=== PATIENT | male | born 1965 | race Two or more races ===

== ENCOUNTER 2023-03-07 12:25 | Inpatient (IN) | payer OTHER ==
[~2023-03-07] VITALS: Ht 170.2 cm; Wt 85.9 kg
[2023-03-07 13:47] LABS: BASOPHILS % (AUTO) 0.3 % (0.0-2.0); EOSINOPHILS % (AUTO) 0.6 % (1.0-6.0); HEMATOCRIT 35.4 % (41-53); HEMOGLOBIN 12.1 g/dL (13.5-17.5); LYMPHOCYTES # (AUTO) 0.9 K/uL (1.0-4.8); LYMPHOCYTES % (AUTO) 7.4 % (22.0-44.0); MEAN CORPUSCULAR HEMOGLOBIN 32.7 pg (26.0-34.0); MEAN CORPUSCULAR HGB CONC 34.3 G/dL (31.0-37.0); MEAN CORPUSCULAR VOLUME 95 fL (80-100); MONOCYTES # (AUTO) 1.1 K/uL (0.1-1.0); MONOCYTES % (AUTO) 9.7 % (2.0-9.0); NEUTROPHILS # (AUTO) 9.6 K/uL (1.8-7.7); PLATELET COUNT (AUTO) 354 K/uL (150-450); RED BLOOD CELL COUNT(AUTO) 3.71 MIL/uL (4.50-5.90); RED CELL DISTRIBUTION WIDTH 13.9 % (11.5-14.5); WHITE BLOOD COUNT (AUTO) 11.7 K/uL (4.5-11.0)
[2023-03-07 14:03] LABS: CALCIUM, TOTAL 9.3 mg/dL (8.8-10.5); CREATININE 1.29 mg/dL (0.60-1.30); POTASSIUM 4.2 mmol/L (3.5-5.1)
[2023-03-07 14:08] LABS: ALBUMIN 3.4 g/dL (3.4-5.0); BILIRUBIN,TOTAL 0.3 mg/dL (0.1-1.0); TOTAL PROTEIN, SERUM 8.3 g/dL (6.4-8.2)
[2023-03-07] MEDS ORDERED: SODIUM CHLORIDE 0.9% 1,000 ML IV ONE ×2 (14:30→16:45)
[2023-03-07 14:58] LABS: TROPONIN I-HIGH SENSITIVITY Less Than 4 ng/L (<76)
[2023-03-07 15:51] LABS: GLUCOMETER DEV NAME(LOC) ERT.5; GLUCOSE,POINT OF CARE 175 MG/DL (70-110)
[2023-03-07] MEDS ORDERED: VANCOMYCIN 1GM/WATER(PEG/NADA) 200 ML IV ONE (16:00)
[2023-03-07 16:31] LABS: ERYTHROCYTE SEDIMENTATION RATE 69 MM/HR (0-20)
[2023-03-07] MEDS ORDERED: DEXTROSE 50%-WATER 25 GM/50 ML SYRINGE IVP PRN (16:45)
[2023-03-07] MEDS ORDERED: MAGNESIUM HYDROXIDE SUSPENSION 30 ML UDCUP PO PRN (16:45)
[2023-03-07] MEDS ORDERED: ACETAMINOPHEN 325 MG TABLET PO PRN (16:45)
[2023-03-07] MEDS ORDERED: OxyCODONE HCL/ACETAMINOPHEN 5-325 MG TABLET PO PRN (16:45)
[2023-03-07 18:33] VITALS: BP 97/55; PULSE 60; RESP 19; TEMP 98.4
[2023-03-07 20:14] VITALS: BP 91/53; PULSE 64; RESP 18; TEMP 98.2
[2023-03-07] MEDS: INSULIN LISPRO 100 UNITS/ML SQ PRN (20:43)
[2023-03-07] MEDS: CefTRIAXone 1 GM/DEXTROSE 50 ML IV SCH (21:30)
[2023-03-07 22:01] LABS: GLUCOMETER DEV NAME(LOC) 5N.2C; GLUCOSE,POINT OF CARE 160 MG/DL (70-110)
[2023-03-08 00:34] VITALS: BP 98/61; PULSE 60; RESP 18; TEMP 98.7
[2023-03-08] MEDS: HEPARIN SODIUM,PORCINE 5,000 UNITS/ML VIAL SQ SCH ×3 (01:02→16:46)
[2023-03-08 04:28] VITALS: BP 107/66; PULSE 62; RESP 18; TEMP 98.6
[2023-03-08] MEDS: INSULIN LISPRO 100 UNITS/ML SQ PRN ×4 (06:14→20:27)
[2023-03-08 07:46] LABS: GLUCOMETER DEV NAME(LOC) 5N.1C; GLUCOSE,POINT OF CARE 148 MG/DL (70-110)
[2023-03-08] MEDS ORDERED: VANCOMYCIN HCL 750 MG in DEXTROSE 5%-WATER 250 ML IV SCH (08:00)
[2023-03-08 08:27] VITALS: BP 115/68; PULSE 59; RESP 19; TEMP 98.2
[2023-03-08] MEDS: ASPIRIN 81 MG CHEWABLE TABLET PO SCH (08:40)
[2023-03-08] MEDS: FAMOTIDINE 20 MG TABLET PO SCH (08:41)
[2023-03-08 08:50] LABS: ANION GAP 8 mmol/L (8-16); CALCIUM, TOTAL 8.9 mg/dL (8.8-10.5); CARBON DIOXIDE 24 mmol/L (22-29); CHLORIDE 102 mmol/L (98-107); CREATININE 0.82 mg/dL (0.60-1.30); GLOMERULAR FILTR. RATE CALC > 60 mL/min (>60); GLUCOSE,RANDOM 123 mg/dL (70-110); POTASSIUM 3.9 mmol/L (3.5-5.1); SODIUM SERUM 134 mmol/L (136-145); UREA NITROGEN, BLOOD 16 mg/dL (7-18)
[2023-03-08 12:21] LABS: GLUCOMETER DEV NAME(LOC) 5N.2C; GLUCOSE,POINT OF CARE 191 MG/DL (70-110)
[2023-03-08 15:11] VITALS: BP 107/54; PULSE 59; RESP 19; TEMP 97.4
[2023-03-08 18:11] LABS: GLUCOMETER DEV NAME(LOC) 5N.1C; GLUCOSE,POINT OF CARE 151 MG/DL (70-110)
[2023-03-08 20:00] VITALS: BP 98/70; PULSE 62; RESP 19; TEMP 98.5
[2023-03-08] MEDS: VANCOMYCIN HCL 500 MG in DEXTROSE 5%-WATER 100 ML IV SCH (20:16)
[2023-03-08] MEDS: CefTRIAXone 1 GM/DEXTROSE 50 ML IV SCH (21:35)
[2023-03-09] VITALS (7 sets, daily range): BP systolic 100–137; BP diastolic 60–83; PULSE 5–62; RESP 18–20; TEMP 98–98.8
[2023-03-09 01:11] LABS: GLUCOMETER DEV NAME(LOC) 5N.1C; GLUCOSE,POINT OF CARE 177 MG/DL (70-110)
[2023-03-09] MEDS ORDERED: ETHYL ALCOHOL 62% ANTISEPTIC NASAL SANITIZER 0.6 ML AMPUL NASAL ONE (06:00)
[2023-03-09] MEDS ORDERED: RINGERS SOLUTION,LACTATED 1,000 ML IV ONE (06:01)
[2023-03-09] MEDS ORDERED: BUPIVACAINE HCL/PF 0.5% 30 ML VIAL ONE (06:16)
[2023-03-09] MEDS ORDERED: VANCOMYCIN HCL 1 GM/VIAL ONE (06:16)
[2023-03-09] MEDS ORDERED: SODIUM CL IRRIG SOLN BAG 3,000 ML IRRIG ONE (06:16)
[2023-03-09] MEDS ORDERED: LIDOCAINE/PF 1% 30 ML VIAL ONE (06:16)
[2023-03-09] MEDS: VANCOMYCIN HCL 500 MG in DEXTROSE 5%-WATER 100 ML IV SCH ×2 (06:39→19:48)
[2023-03-09 06:47] LABS: BASOPHILS % (AUTO) 0.5 % (0.0-2.0); EOSINOPHILS % (AUTO) 4.6 % (1.0-6.0); HEMATOCRIT 35.5 % (41-53); HEMOGLOBIN 12.1 g/dL (13.5-17.5); LYMPHOCYTES # (AUTO) 1.3 K/uL (1.0-4.8); LYMPHOCYTES % (AUTO) 13.9 % (22.0-44.0); MEAN CORPUSCULAR HEMOGLOBIN 32.4 pg (26.0-34.0); MEAN CORPUSCULAR HGB CONC 34.1 G/dL (31.0-37.0); MEAN CORPUSCULAR VOLUME 95 fL (80-100); MONOCYTES # (AUTO) 0.9 K/uL (0.1-1.0); MONOCYTES % (AUTO) 9.6 % (2.0-9.0); NEUTROPHILS # (AUTO) 6.7 K/uL (1.8-7.7); NEUTROPHILS % (AUTO) 71.4 % (40.0-70.0); PLATELET COUNT (AUTO) 383 K/uL (150-450); RED BLOOD CELL COUNT(AUTO) 3.74 MIL/uL (4.50-5.90); RED CELL DISTRIBUTION WIDTH 14.2 % (11.5-14.5); WHITE BLOOD COUNT (AUTO) 9.5 K/uL (4.5-11.0)
[2023-03-09 07:03] LABS: ANION GAP 9 mmol/L (8-16); CALCIUM, TOTAL 8.6 mg/dL (8.8-10.5); CARBON DIOXIDE 27 mmol/L (22-29); CHLORIDE 98 mmol/L (98-107); CREATININE 0.78 mg/dL (0.60-1.30); GLOMERULAR FILTR. RATE CALC > 60 mL/min (>60); GLUCOSE,RANDOM 157 mg/dL (70-110); POTASSIUM 4.4 mmol/L (3.5-5.1); SODIUM SERUM 134 mmol/L (136-145); UREA NITROGEN, BLOOD 13 mg/dL (7-18)
[2023-03-09] MEDS ORDERED: HYDROmorphone HCL 2 MG/ML SYRINGE IVP PRN (07:30)
[2023-03-09] MEDS ORDERED: FentaNYL CITRATE PF 100 MCG/2 ML VIAL IVP PRN (07:30)
[2023-03-09] MEDS ORDERED: MEPERIDINE-PF 25 MG/ML VIAL IVP PRN (07:30)
[2023-03-09] MEDS: HEPARIN SODIUM,PORCINE 5,000 UNITS/ML VIAL SQ SCH ×4 (07:50→23:24)
[2023-03-09] MEDS ORDERED: VANCOMYCIN HCL 750 MG in DEXTROSE 5%-WATER 250 ML IV SCH (08:00)
[2023-03-09] MEDS ORDERED: THROMBIN, BOVINE 20000 UNITS/VIAL POWDER TP ONE (08:31)
[2023-03-09] MEDS: FAMOTIDINE 20 MG TABLET PO SCH (08:52)
[2023-03-09] MEDS: ASPIRIN 81 MG CHEWABLE TABLET PO SCH (08:52)
[2023-03-09] MEDS: INSULIN LISPRO 100 UNITS/ML SQ PRN ×4 (09:02→20:18)
[2023-03-09 18:17] LABS: GLUCOMETER DEV NAME(LOC) 6N.1B; GLUCOSE,POINT OF CARE 145 MG/DL (70-110)
[2023-03-09] MEDS ORDERED: SODIUM CHLORIDE 0.9% 500 ML IV ONE (19:41)
[2023-03-09] MEDS: OXYGEN THERAPY IH SCH (19:48)
[2023-03-09] MEDS: CefTRIAXone 1 GM/DEXTROSE 50 ML IV SCH (20:19)
[2023-03-09 20:51] LABS: GLUCOMETER DEV NAME(LOC) 6N.2B; GLUCOSE,POINT OF CARE 176 MG/DL (70-110)
[2023-03-09 23:21] LABS: GLUCOMETER DEV NAME(LOC) 5N.2C; GLUCOSE,POINT OF CARE 153 MG/DL (70-110)
[2023-03-09 23:21] LABS: GLUCOMETER DEV NAME(LOC) 5N.2C; GLUCOSE,POINT OF CARE 176 MG/DL (70-110)
[2023-03-10] MEDS ORDERED: FentaNYL CITRATE PF 100 MCG/2 ML VIAL IVP ONE (04:33)
[2023-03-10] MEDS ORDERED: MIDAZOLAM HCL 2 MG/2 ML VIAL IVP ONE (04:33)
[2023-03-10] MEDS ORDERED: PROPOFOL 1% ISO-OSM 1000 MG/100 ML BOTTLE IV ONE (04:33)
[2023-03-10 05:11] VITALS: BP 128/77; PULSE 62; RESP 20; TEMP 98.4
[2023-03-10] MEDS: INSULIN LISPRO 100 UNITS/ML SQ PRN ×3 (06:10→18:11)
[2023-03-10 07:32] LABS: ANION GAP 7 mmol/L (8-16); CALCIUM, TOTAL 9.1 mg/dL (8.8-10.5); CARBON DIOXIDE 27 mmol/L (22-29); CHLORIDE 100 mmol/L (98-107); CREATININE 0.71 mg/dL (0.60-1.30); GLOMERULAR FILTR. RATE CALC > 60 mL/min (>60); GLUCOSE,RANDOM 147 mg/dL (70-110); POTASSIUM 3.9 mmol/L (3.5-5.1); SODIUM SERUM 134 mmol/L (136-145); UREA NITROGEN, BLOOD 13 mg/dL (7-18); VANCOMYCIN,RANDOM 3.9 mcg/mL (25.0-50.0)
[2023-03-10] MEDS: HEPARIN SODIUM,PORCINE 5,000 UNITS/ML VIAL SQ SCH ×2 (08:00→16:00)
[2023-03-10] MEDS: OXYGEN THERAPY IH SCH (08:00)
[2023-03-10] MEDS: VANCOMYCIN HCL 750 MG in DEXTROSE 5%-WATER 250 ML IV SCH ×2 (08:34→16:20)
[2023-03-10] MEDS: FAMOTIDINE 20 MG TABLET PO SCH (08:35)
[2023-03-10] MEDS: ASPIRIN 81 MG CHEWABLE TABLET PO SCH (08:35)
[2023-03-10 09:34] VITALS: BP 115/70; PULSE 63; RESP 18; TEMP 98.9
[2023-03-10 12:27] LABS: GLUCOMETER DEV NAME(LOC) 6N.2B; GLUCOSE,POINT OF CARE 148 MG/DL (70-110)
[2023-03-10 17:42] VITALS: BP 111/83; PULSE 64; RESP 18; TEMP 98.5
[2023-03-10 19:50] VITALS: BP 138/77; PULSE 65; RESP 20; TEMP 98.3
[2023-03-10 20:26] LABS: GLUCOMETER DEV NAME(LOC) 6N.2B; GLUCOSE,POINT OF CARE 182 MG/DL (70-110)
[2023-03-10 20:26] LABS: GLUCOMETER DEV NAME(LOC) 6N.1B; GLUCOSE,POINT OF CARE 221 MG/DL (70-110)
== END 2023-03-10 20:22 | disposition short-term general hospital (02) | DRG 623 ==
LOC: EMS 12:25 → 5S 16:42 → 6N 03-09 16:24
PROVIDERS: ADMIT Internal Medicine; ATTEND Internal Medicine
PROC: 0JBQ0ZZ Excision of Right Foot Subcutaneous Tissue and Fascia, Open Approach (ICD-10-PCS; principal; 2023-03-10)
DX: E11.69 Type 2 diabetes mellitus with other specified complication (principal); E87.1 Hypo-osmolality and hyponatremia; M86.8X7 Other osteomyelitis, ankle and foot; M10.072 Idiopathic gout, left ankle and foot; L03.032 Cellulitis of left toe; E11.65 Type 2 diabetes mellitus with hyperglycemia; L97.509 Non-pressure chronic ulcer of other part of unspecified foot with unspecified severity; E11.621 Type 2 diabetes mellitus with foot ulcer; E11.40 Type 2 diabetes mellitus with diabetic neuropathy, unspecified; L97.529 Non-pressure chronic ulcer of other part of left foot with unspecified severity; I10 Essential (primary) hypertension; E11.649 Type 2 diabetes mellitus with hypoglycemia without coma; Z83.3 Family history of diabetes mellitus
CPT/HCPCS: 70450; 71045; 80048; 80053; 80202; 82962; 84484; 85025; 85651; 86140; 87015; 87040; 87070; 87101; 87186; 87205; 87206; 93005; 97116; 97162; 99285; J0696; J1644; J2250; J2704; J3010; J3370; J3490; J7040; J7060; J7120; Q9967; 36415-L1; 36415-TC; Z7610